=== PATIENT | female | born 1980 ===

== ENCOUNTER 2019-01-09 15:00 | Inpatient (IN) | payer OTHER ==
[~2019-01-09] VITALS: Ht 172.7 cm; Wt 113.4 kg
[2019-01-09] MEDS ORDERED: COZAAR100 MG PO (16:17)
[2019-01-09] MEDS ORDERED: HYDROCHLOR PO (16:17)
[2019-01-09] MEDS ORDERED: NORVASC10 MG PO (16:17)
[2019-01-09] MEDS ORDERED: MEGESTROL ACETA40 MG PO (16:18)
[2019-01-11] MEDS ORDERED: HYDROCHLOROTHIA25 MG PO (14:03)
[2019-01-14] MEDS ORDERED: Tylenol #3 PO (10:03)
== END 2019-01-14 11:17 | DRG 743 ==
LOC: O/R 15:00 → OB/GYN 01-11 13:15 → O/R 01-11 15:00 → OB/GYN 01-11 21:52
PROVIDERS: ADMIT Obstetrics & Gynecology
PROC: 0UT90ZZ Resection of Uterus, Open Approach (ICD-10-PCS; principal; 2019-01-11 13:00)
PROC: 0UT70ZZ Resection of Bilateral Fallopian Tubes, Open Approach (ICD-10-PCS; 2019-01-11 13:00)
DX: D25.1 Intramural leiomyoma of uterus (principal); D25.0 Submucous leiomyoma of uterus; N72 Inflammatory disease of cervix uteri